=== PATIENT | male | born 1955 | race Caucasian/White ===

== ENCOUNTER 2018-02-04 13:05 | Observation (INO) ==
[2018-02-04] MEDS ORDERED: SODIUM CHLORIDE 0.9% 1,000 ML IV STA (13:27)
[2018-02-04 14:09] LABS: Basophils % 0.2 % (0.0-0.8); Hemoglobin 15.9 GM/DL (14.0-18.0); Immature Granulocytes % 0.6 %; Immature Granulocytes Absolute 0.08 #; Lymphocytes # 1.6 10*3/uL (1.4-4.0); Lymphocytes % 12.1 % (21.2-54.2); Mean Corpuscular HGB Conc 32.4 GM/DL (32-36); Mean Corpuscular Hemoglobin 28 PG (27-34); Mean Corpuscular Volume 87.3 FL (87-102); Monocytes # 2.1 10*3/uL (0.11-0.8); Monocytes % 16.3 % (1.7-12.7); Neutrophils # 9.2 10*3/uL (1.4-7.4); Neutrophils % 70.8 % (38.7-73.9); Platelet Count 188 T/CUMM (130-400); Red Blood Count 5.61 MC/CUMM (3.8-5.5); Red Cell Distribution Width 13.7 % (9.3-17.3)
[2018-02-04 14:27] LABS: INR 1.1; Partial Thromboplastin Time 34.1 SECS (0-40)
[2018-02-04 14:31] LABS: Lactic Acid 1.7 MMOL/L (0.4-2.0)
[2018-02-04 14:33] LABS: Apearance,Urine CLEAR (Clear); Bacteria,Urine Occasional /HPF (Few); Bilirubin,Urine Negative (Negative); Blood, Urine Negative (Negative); Glucose,Urine (UA) Negative (Negative); Hyaline Casts,Urine 1 /LPF (0-3); Ketones,Urine Negative (Negative); Mucus,Urine Occasional /LPF (Occasional); Nitrite,Urine Negative (Negative); Protein,Urine Negative; RBC,Urine 1 /HPF (0-4); Urine Color Amber (Yellow); Urine Specific Gravity 1.025 (1.001-1.035); WBC,Urine 4 /HPF (0-6)
[2018-02-04 15:13] LABS: Albumin 2.9 G/DL (3.4-5.0); Bilirubin,Total 0.4 MG/DL (0.2-1.0); Calcium 9.4 MG/DL (8.5-10.1); Osmolality,Calculated 288.7 MOS/KG (273-304); Total Protein 7.9 G/DL (6.4-8.3)
[2018-02-04] MEDS ORDERED: cefTRIAXone 1,000 MG in SODIUM CHLORIDE 0.9% 100 ML IV STA (15:30)
[2018-02-04] MEDS ORDERED: LACTULOSE 20 GM/30 ML UDCUP PO PRN (16:11)
[2018-02-04] MEDS ORDERED: ACETAMINOPHEN 325 MG TABLET PO PRN (16:11)
[2018-02-04] MEDS ORDERED: ONDANSETRON 4 MG/2 ML VIAL IV PRN (16:11)
[2018-02-04] MEDS ORDERED: POLYVINYL ALCOHOL 1.4% OPH SOLN 15 ML BOTTLE BOTH EYES PRN (16:13)
[2018-02-04] MEDS: SODIUM CHLORIDE 0.45% 1,000 ML IV SCH (18:53)
[2018-02-04] MEDS ORDERED: INFLUENZA VIRUS VACCINE 0.5 ML SYRINGE IM ONE (20:00)
[2018-02-04] MEDS ORDERED: hydrALAZINE 20 MG/1 ML VIAL IV PRN (20:21)
[2018-02-05] MEDS: miSOPROStol 200 MCG TABLET PO SCH ×6 (00:09→21:04)
[2018-02-05] MEDS: DIVALPROEX ER 500 MG TABLET PO SCH ×2 (00:10→21:04)
[2018-02-05] MEDS: DOCUSATE SODIUM 100 MG CAPSULE PO SCH ×2 (00:10→21:04)
[2018-02-05] MEDS: TAMSULOSIN 0.4 MG CAPSULE PO SCH ×3 (00:11→21:04)
[2018-02-05] MEDS: METOPROLOL TARTRATE 100 MG TABLET PO SCH ×3 (00:11→21:04)
[2018-02-05] MEDS: FLUTICASONE 50 MCG NASAL SPRAY 16 GM BOTTLE BOTH NARES SCH ×3 (00:11→21:09)
[2018-02-05] MEDS: PANTOPRAZOLE 40 MG TABLET PO SCH ×3 (00:12→21:04)
[2018-02-05] MEDS: LACOSAMIDE 50 MG TABLET PO SCH ×3 (00:12→21:04)
[2018-02-05] MEDS: AMANTADINE 100 MG CAPSULE PO SCH ×3 (00:12→21:04)
[2018-02-05] MEDS: OLANZapine 5 MG TABLET PO SCH ×3 (00:13→21:04)
[2018-02-05] MEDS: cefTRIAXone 1,000 MG in SYRINGE 1 EACH IV SCH ×2 (00:14→15:59)
[2018-02-05] MEDS: BISACODYL 10 MG SUPP RECTAL SCH ×2 (00:14→21:05)
[2018-02-05] MEDS: SUCRALFATE 1 GM/10 ML UDCUP PO SCH ×3 (00:14→15:59)
[2018-02-05] MEDS: SODIUM CHLORIDE 0.45% 1,000 ML IV SCH ×4 (03:22→16:00)
[2018-02-05 05:44] LABS: Basophils % 0.2 % (0.0-0.8); Immature Granulocytes % 0.7 %; Immature Granulocytes Absolute 0.06 #
[2018-02-05 06:13] LABS: Eosinophils % 0.4 % (0.00-10.9); Hematocrit 42.1 VOL% (42.0-52.0); Lymphocytes # 1.5 10*3/uL (1.4-4.0); Lymphocytes % 18.6 % (21.2-54.2); Mean Corpuscular HGB Conc 32.8 GM/DL (32-36); Mean Corpuscular Hemoglobin 29 PG (27-34); Mean Corpuscular Volume 89.4 FL (87-102); Mean Platelet Volume 9.7 FL (9.6-12.0); Monocytes # 1.3 10*3/uL (0.11-0.8); Monocytes % 15.8 % (1.7-12.7); Neutrophils # 5.3 10*3/uL (1.4-7.4); Neutrophils % 64.3 % (38.7-73.9); Red Blood Count 4.71 MC/CUMM (3.8-5.5); Red Cell Distribution Width 13.8 % (9.3-17.3)
[2018-02-05 06:15] LABS: Hemoglobin 13.8 GM/DL (14.0-18.0); Platelet Count 136 T/CUMM (130-400); White Blood Count 8.2 T/CUMM (4-12)
[2018-02-05 06:34] LABS: Band Neutrophils 3 % (0-10); Hypochromasia 1+; Lymphocytes 28 % (20-55); Segmented Neutrophils 56 % (50-85); Total Cells Counted 100
[2018-02-05 06:35] LABS: Platelet Estimate Normal
[2018-02-05 06:59] LABS: Albumin 2.4 G/DL (3.4-5.0); Bilirubin,Total 1.1 MG/DL (0.2-1.0); Calcium 8.6 MG/DL (8.5-10.1); Osmolality,Calculated 285.3 MOS/KG (273-304); Potassium 4.3 MMOL/L (3.5-5.1); Total Protein 6.3 G/DL (6.4-8.3)
[2018-02-05] MEDS: MULTIVITAMIN (CENTRUM) TABLET PO SCH (08:01)
[2018-02-05] MEDS: DUTASTERIDE 0.5 MG CAPSULE PO SCH (08:01)
[2018-02-05] MEDS: hydroCHLOROthiazide 25 MG TABLET PO SCH (08:02)
[2018-02-05] MEDS: aMILoride 5 MG TABLET PO SCH (08:02)
[2018-02-05] MEDS: DIVALPROEX 500 MG TABLET PO SCH (08:02)
[2018-02-06] MEDS: SODIUM CHLORIDE 0.45% 1,000 ML IV SCH ×2 (01:02→09:19)
[2018-02-06] MEDS: FLUTICASONE 50 MCG NASAL SPRAY 16 GM BOTTLE BOTH NARES SCH (09:17)
[2018-02-06] MEDS: PANTOPRAZOLE 40 MG TABLET PO SCH (09:18)
[2018-02-06] MEDS: TAMSULOSIN 0.4 MG CAPSULE PO SCH (09:18)
[2018-02-06] MEDS: aMILoride 5 MG TABLET PO SCH (09:18)
[2018-02-06] MEDS: MULTIVITAMIN (CENTRUM) TABLET PO SCH (09:18)
[2018-02-06] MEDS: DIVALPROEX 500 MG TABLET PO SCH (09:18)
[2018-02-06] MEDS: hydroCHLOROthiazide 25 MG TABLET PO SCH (09:18)
[2018-02-06] MEDS: DUTASTERIDE 0.5 MG CAPSULE PO SCH (09:18)
[2018-02-06] MEDS: AMANTADINE 100 MG CAPSULE PO SCH (09:18)
[2018-02-06] MEDS: OLANZapine 5 MG TABLET PO SCH (09:18)
[2018-02-06] MEDS: SUCRALFATE 1 GM/10 ML UDCUP PO SCH (09:18)
[2018-02-06] MEDS: LACOSAMIDE 50 MG TABLET PO SCH (09:18)
[2018-02-06] MEDS: miSOPROStol 200 MCG TABLET PO SCH ×2 (09:18→11:28)
[2018-02-06] MEDS: METOPROLOL TARTRATE 100 MG TABLET PO SCH (09:18)
[2018-02-06 12:22] VITALS: BP 112/70
== END 2018-02-06 15:12 | disposition home or self-care (01) ==
LOC: EDUNIT# → EDBD → N.ED 13:05 → N.EDINP 13:05 → N.5E 18:12
PROVIDERS: ADMIT Internal Medicine; ATTEND Internal Medicine

== ENCOUNTER 2019-12-04 02:45 | Inpatient (IN) ==
[2019-12-04] MEDS ORDERED: methylPREDNISolone SOD SUC 125 MG/2 ML VIAL IV STA (03:46)
[2019-12-04] MEDS ORDERED: cefTRIAXone 1,000 MG in SODIUM CHLORIDE 0.9% 100 ML IV STA (03:46)
[2019-12-04 03:57] LABS: Basophils % 0.3 % (0.0-0.8); Eosinophils # 0.1 10*3/uL (0.0-0.87); Eosinophils % 0.6 % (0.00-10.9); Hematocrit 35.8 VOL% (42.0-52.0); Hemoglobin 11.8 GM/DL (14.0-18.0); Immature Granulocytes % 4.9 %; Immature Granulocytes Absolute 0.51 #; Lymphocytes # 0.8 10*3/uL (1.4-4.0); Lymphocytes % 7.3 % (21.2-54.2); Mean Corpuscular Volume 86.3 FL (87-102); Mean Platelet Volume 8.5 FL (9.6-12.0); Neutrophils % 79.9 % (38.7-73.9); Platelet Count 190 T/CUMM (130-400); Red Blood Count 4.15 MC/CUMM (3.8-5.5); Red Cell Distribution Width 14.6 % (9.3-17.3); White Blood Count 10.4 T/CUMM (4-12)
[2019-12-04] MEDS ORDERED: LORazepam 2 MG/1 ML VIAL ONE (04:06)
[2019-12-04 04:14] LABS: Albumin 1.6 G/DL (3.4-5.0); Bilirubin,Total 0.5 MG/DL (0.2-1.0); Calcium 8.8 MG/DL (8.5-10.1); Ferritin 711.1 ng/ml (26-388); Osmolality,Calculated 252.2 MOS/KG (273-304); Total Protein 6.7 G/DL (6.4-8.3)
[2019-12-04] MEDS ORDERED: LORazepam 4 MG/1 ML VIAL IV STA (04:16)
[2019-12-04 04:17] LABS: Apearance,Urine CLEAR (Clear); Bacteria,Urine Occasional /HPF (Few); Bilirubin,Urine Negative (Negative); Blood, Urine Negative (Negative); Glucose,Urine (UA) Negative (Negative); Hyaline Casts,Urine 1 /LPF (0-3); Ketones,Urine 20 mg/dL (Negative); Mucus,Urine Occasional /LPF (Occasional); Nitrite,Urine Negative (Negative); Protein,Urine Negative; RBC,Urine 1 /HPF (0-4); Squamous Epithelial Cell,Urine Occasional /HPF (0-10); Urine Color Yellow (Yellow); WBC,Urine 1 /HPF (0-6)
[2019-12-04 04:20] LABS: INR 1.1; PT Patient Result 12.2 SECS (9.8-11.9)
[2019-12-04] MEDS ORDERED: PIPERACILLIN/TAZOBACTAM 3,375 MG in SODIUM CHLORIDE 0.9% 100 ML IV STA (04:29)
[2019-12-04 04:49] LABS: Lymphocytes 9 % (20-55); Segmented Neutrophils 83 % (50-85); Total Cells Counted 100
[2019-12-04 04:50] LABS: Anisocytosis 1+; Platelet Estimate Normal
[2019-12-04] MEDS ORDERED: ALUMINUM/MAGNES/SIMETH MAX STR 30 ML UDCUP PO PRN (05:16)
[2019-12-04] MEDS ORDERED: ACETAMINOPHEN 325 MG TABLET PO PRN (05:50)
[2019-12-04] MEDS ORDERED: ONDANSETRON 4 MG/2 ML VIAL IV PRN (05:50)
[2019-12-04] MEDS ORDERED: LORazepam 2 MG/1 ML VIAL IV PRN (06:16)
[2019-12-04] MEDS: ENOXAPARIN 40 MG/0.4 ML SYRINGE SUBCUT SCH (08:45)
[2019-12-04] MEDS: SODIUM CHLORIDE 1 GM TABLET PO SCH ×3 (08:45→20:12)
[2019-12-04] MEDS: FLUTICASONE 50 MCG NASAL SPRAY 16 GM BOTTLE BOTH NARES SCH ×2 (08:45→20:13)
[2019-12-04] MEDS: DUTASTERIDE 0.5 MG CAPSULE PO SCH (08:45)
[2019-12-04] MEDS: POTASSIUM CHLORIDE 20 MEQ/15 ML UDCUP PO SCH (08:45)
[2019-12-04] MEDS: CHOLECALCIFEROL 1,000 UNIT TABLET PO SCH (08:45)
[2019-12-04] MEDS: AMANTADINE 100 MG CAPSULE PO SCH ×2 (08:45→20:11)
[2019-12-04] MEDS: CETIRIZINE 10 MG TABLET PO SCH (08:46)
[2019-12-04] MEDS: CARBIDOPA/LEVODOPA 25-100 MG TABLET PO SCH ×3 (08:46→20:12)
[2019-12-04] MEDS: AZITHROMYCIN 250 MG TABLET PO SCH (08:46)
[2019-12-04] MEDS: FAMOTIDINE 20 MG TABLET PO SCH ×2 (08:46→20:12)
[2019-12-04] MEDS: miSOPROStoL 200 MCG TABLET PO SCH ×4 (08:46→20:12)
[2019-12-04] MEDS: TAMSULOSIN 0.4 MG CAPSULE PO SCH ×2 (08:46→20:12)
[2019-12-04] MEDS: ZINC SULFATE 220 MG CAPSULE PO SCH (08:47)
[2019-12-04] MEDS: SUCRALFATE 1 GM/10 ML UDCUP PO SCH ×2 (08:47→17:11)
[2019-12-04] MEDS: BACLOFEN 10 MG TABLET PO SCH ×2 (08:47→20:13)
[2019-12-04] MEDS: METOPROLOL TARTRATE 100 MG TABLET PO SCH ×2 (08:47→20:12)
[2019-12-04] MEDS: ASCORBIC ACID 500 MG TABLET PO SCH (08:47)
[2019-12-04] MEDS: DIVALPROEX 500 MG TABLET PO SCH (08:47)
[2019-12-04] MEDS ORDERED: AMILORIDE PO SCH (09:00)
[2019-12-04] MEDS ORDERED: AZITHROMYCIN INJ 500 MG in SODIUM CHLORIDE 0.9% 250 ML IV SCH (09:00)
[2019-12-04] MEDS: LORazepam 2 MG/1 ML VIAL IV PRN (13:54)
[2019-12-04] MEDS: PIPERACILLIN/TAZOBACTAM 3,375 MG in SODIUM CHLORIDE 0.9% 100 ML IV SCH ×2 (17:10→23:59)
[2019-12-04] MEDS: LACTULOSE 20 GM/30 ML UDCUP PO SCH (20:11)
[2019-12-04] MEDS: DOCUSATE SODIUM 100 MG CAPSULE PO SCH (20:11)
[2019-12-04] MEDS: levETIRAcetam 500 MG TABLET PO SCH (20:11)
[2019-12-04] MEDS: ARIPiprazole 10 MG TABLET PO SCH (20:12)
[2019-12-04] MEDS: BISACODYL 10 MG SUPP RECTAL SCH (20:12)
[2019-12-04] MEDS: DIVALPROEX ER 500 MG TABLET PO SCH (20:12)
[2019-12-04] MEDS: CARBOXYMETHYLCELLULOSE 1% OPH SOLN BOTH EYES SCH (20:12)
[2019-12-05 05:57] LABS: Hematocrit 31.6 VOL% (42.0-52.0); Hemoglobin 10.5 GM/DL (14.0-18.0); Immature Granulocytes % 1.8 %; Immature Granulocytes Absolute 0.17 #; Lymphocytes # 0.7 10*3/uL (1.4-4.0); Lymphocytes % 7.2 % (21.2-54.2); Mean Corpuscular HGB Conc 33.2 GM/DL (32-36); Mean Corpuscular Volume 87.5 FL (87-102); Mean Platelet Volume 8.8 FL (9.6-12.0); Monocytes % 5.9 % (1.7-12.7); Neutrophils % 85.1 % (38.7-73.9); Platelet Count 191 T/CUMM (130-400); Red Blood Count 3.61 MC/CUMM (3.8-5.5); Red Cell Distribution Width 14.7 % (9.3-17.3); White Blood Count 9.7 T/CUMM (4-12)
[2019-12-05 06:22] LABS: Calcium 8.5 MG/DL (8.5-10.1); Osmolality,Calculated 268.4 MOS/KG (273-304)
[2019-12-05] MEDS: LORazepam 2 MG/1 ML VIAL IV PRN (07:57)
[2019-12-05] MEDS: SUCRALFATE 1 GM/10 ML UDCUP PO SCH ×2 (08:58→16:35)
[2019-12-05] MEDS: POTASSIUM CHLORIDE 20 MEQ/15 ML UDCUP PO SCH (08:58)
[2019-12-05] MEDS: LACTULOSE 20 GM/30 ML UDCUP PO SCH ×2 (08:58→20:04)
[2019-12-05] MEDS: ENOXAPARIN 40 MG/0.4 ML SYRINGE SUBCUT SCH (08:59)
[2019-12-05] MEDS: PIPERACILLIN/TAZOBACTAM 3,375 MG in SODIUM CHLORIDE 0.9% 100 ML IV SCH ×2 (08:59→19:50)
[2019-12-05] MEDS: FAMOTIDINE 20 MG TABLET PO SCH ×2 (09:00→20:04)
[2019-12-05] MEDS: CHOLECALCIFEROL 1,000 UNIT TABLET PO SCH (09:00)
[2019-12-05] MEDS: DEXAMETHASONE 10 MG/1 ML VIAL IV SCH (09:00)
[2019-12-05] MEDS: AZITHROMYCIN 250 MG TABLET PO SCH (09:01)
[2019-12-05] MEDS: DUTASTERIDE 0.5 MG CAPSULE PO SCH (09:01)
[2019-12-05] MEDS: BACLOFEN 10 MG TABLET PO SCH ×2 (09:01→20:05)
[2019-12-05] MEDS: CARBIDOPA/LEVODOPA 25-100 MG TABLET PO SCH ×3 (09:01→20:05)
[2019-12-05] MEDS: miSOPROStoL 200 MCG TABLET PO SCH ×4 (09:01→20:05)
[2019-12-05] MEDS: AMANTADINE 100 MG CAPSULE PO SCH ×2 (09:02→20:04)
[2019-12-05] MEDS: SODIUM CHLORIDE 1 GM TABLET PO SCH ×3 (09:02→20:05)
[2019-12-05] MEDS: DIVALPROEX 500 MG TABLET PO SCH (09:02)
[2019-12-05] MEDS: levETIRAcetam 500 MG TABLET PO SCH ×2 (09:02→20:04)
[2019-12-05] MEDS: TAMSULOSIN 0.4 MG CAPSULE PO SCH ×2 (09:02→20:05)
[2019-12-05] MEDS: ASCORBIC ACID 500 MG TABLET PO SCH (09:02)
[2019-12-05] MEDS: MULTIVITAMIN (CENTRUM) TABLET PO SCH (09:02)
[2019-12-05] MEDS: CETIRIZINE 10 MG TABLET PO SCH (09:02)
[2019-12-05] MEDS: METOPROLOL TARTRATE 100 MG TABLET PO SCH ×2 (09:02→20:04)
[2019-12-05] MEDS: VANCOMYCIN INJ 1,000 MG in SODIUM CHLORIDE 0.9% 250 ML IV SCH ×3 (09:03→23:53)
[2019-12-05] MEDS: FLUTICASONE 50 MCG NASAL SPRAY 16 GM BOTTLE BOTH NARES SCH ×2 (09:04→20:05)
[2019-12-05] MEDS: CARBOXYMETHYLCELLULOSE 1% OPH SOLN BOTH EYES SCH (20:04)
[2019-12-05] MEDS: ARIPiprazole 10 MG TABLET PO SCH (20:05)
[2019-12-05] MEDS: DOCUSATE SODIUM 100 MG CAPSULE PO SCH (20:05)
[2019-12-05] MEDS: BISACODYL 10 MG SUPP RECTAL SCH (20:05)
[2019-12-05] MEDS: DIVALPROEX ER 500 MG TABLET PO SCH (20:05)
[2019-12-06] MEDS: PIPERACILLIN/TAZOBACTAM 3,375 MG in SODIUM CHLORIDE 0.9% 100 ML IV SCH ×3 (04:30→20:42)
[2019-12-06 05:33] LABS: Basophils % 0.2 % (0.0-0.8); Hematocrit 33.4 VOL% (42.0-52.0); Hemoglobin 10.7 GM/DL (14.0-18.0); Immature Granulocytes % 1.4 %; Immature Granulocytes Absolute 0.13 #; Lymphocytes # 0.8 10*3/uL (1.4-4.0); Lymphocytes % 9.4 % (21.2-54.2); Mean Corpuscular Volume 89.8 FL (87-102); Mean Platelet Volume 8.5 FL (9.6-12.0); Monocytes % 7.5 % (1.7-12.7); NRBC # 0.02 10*3/uL; Neutrophils % 81.5 % (38.7-73.9); Platelet Count 206 T/CUMM (130-400); Red Blood Count 3.72 MC/CUMM (3.8-5.5); Red Cell Distribution Width 14.9 % (9.3-17.3)
[2019-12-06 07:01] LABS: Calcium 8.7 MG/DL (8.5-10.1); Osmolality,Calculated 281.4 MOS/KG (273-304)
[2019-12-06] MEDS: SUCRALFATE 1 GM/10 ML UDCUP PO SCH ×2 (10:11→17:03)
[2019-12-06] MEDS: MULTIVITAMIN (CENTRUM) TABLET PO SCH (10:12)
[2019-12-06] MEDS: DEXAMETHASONE 10 MG/1 ML VIAL IV SCH (10:12)
[2019-12-06] MEDS: DUTASTERIDE 0.5 MG CAPSULE PO SCH (10:12)
[2019-12-06] MEDS: miSOPROStoL 200 MCG TABLET PO SCH ×4 (10:12→20:09)
[2019-12-06] MEDS: DIVALPROEX 500 MG TABLET PO SCH (10:13)
[2019-12-06] MEDS: FLUTICASONE 50 MCG NASAL SPRAY 16 GM BOTTLE BOTH NARES SCH ×2 (10:13→20:10)
[2019-12-06] MEDS: METOPROLOL TARTRATE 100 MG TABLET PO SCH ×2 (10:13→20:11)
[2019-12-06] MEDS: levETIRAcetam 500 MG TABLET PO SCH ×2 (10:13→20:10)
[2019-12-06] MEDS: TAMSULOSIN 0.4 MG CAPSULE PO SCH ×2 (10:13→20:10)
[2019-12-06] MEDS: BACLOFEN 10 MG TABLET PO SCH ×2 (10:13→20:11)
[2019-12-06] MEDS: SODIUM CHLORIDE 1 GM TABLET PO SCH ×3 (10:14→20:10)
[2019-12-06] MEDS: CARBIDOPA/LEVODOPA 25-100 MG TABLET PO SCH ×3 (10:14→20:09)
[2019-12-06] MEDS: ZINC SULFATE 220 MG CAPSULE PO SCH (10:14)
[2019-12-06] MEDS: ENOXAPARIN 40 MG/0.4 ML SYRINGE SUBCUT SCH (10:14)
[2019-12-06] MEDS: ASCORBIC ACID 500 MG TABLET PO SCH (10:14)
[2019-12-06] MEDS: FAMOTIDINE 20 MG TABLET PO SCH ×2 (10:14→20:10)
[2019-12-06] MEDS: CHOLECALCIFEROL 1,000 UNIT TABLET PO SCH (10:14)
[2019-12-06] MEDS: AMANTADINE 100 MG CAPSULE PO SCH ×2 (10:14→20:10)
[2019-12-06] MEDS: POTASSIUM CHLORIDE 20 MEQ/15 ML UDCUP PO SCH (10:15)
[2019-12-06] MEDS: CETIRIZINE 10 MG TABLET PO SCH (10:15)
[2019-12-06] MEDS: LACTULOSE 20 GM/30 ML UDCUP PO SCH ×2 (10:15→20:09)
[2019-12-06] MEDS: VANCOMYCIN INJ 1,000 MG in SODIUM CHLORIDE 0.9% 250 ML IV SCH (11:46)
[2019-12-06] MEDS: VANCOMYCIN INJ 1,250 MG in SODIUM CHLORIDE 0.9% 250 ML IV SCH ×2 (12:02→19:37)
[2019-12-06] MEDS: DOCUSATE SODIUM 100 MG CAPSULE PO SCH (20:09)
[2019-12-06] MEDS: ARIPiprazole 10 MG TABLET PO SCH (20:10)
[2019-12-06] MEDS: CARBOXYMETHYLCELLULOSE 1% OPH SOLN BOTH EYES SCH (20:10)
[2019-12-06] MEDS: DIVALPROEX ER 500 MG TABLET PO SCH (20:10)
[2019-12-06] MEDS: BISACODYL 10 MG SUPP RECTAL SCH (20:11)
[2019-12-07] MEDS: VANCOMYCIN INJ 1,250 MG in SODIUM CHLORIDE 0.9% 250 ML IV SCH ×2 (03:15→16:54)
[2019-12-07 04:33] LABS: Basophils % 0.1 % (0.0-0.8); Hematocrit 35.4 VOL% (42.0-52.0); Hemoglobin 11.1 GM/DL (14.0-18.0); Immature Granulocytes % 1.3 %; Immature Granulocytes Absolute 0.09 #; Lymphocytes # 1.2 10*3/uL (1.4-4.0); Lymphocytes % 17.1 % (21.2-54.2); Mean Corpuscular HGB Conc 31.4 GM/DL (32-36); Mean Corpuscular Volume 90.5 FL (87-102); Mean Platelet Volume 8.5 FL (9.6-12.0); Monocytes % 7.7 % (1.7-12.7); Neutrophils % 73.8 % (38.7-73.9); Platelet Count 204 T/CUMM (130-400); Red Blood Count 3.91 MC/CUMM (3.8-5.5); Red Cell Distribution Width 15.1 % (9.3-17.3)
[2019-12-07] MEDS: PIPERACILLIN/TAZOBACTAM 3,375 MG in SODIUM CHLORIDE 0.9% 100 ML IV SCH ×3 (04:42→21:23)
[2019-12-07 04:49] LABS: Calcium 8.7 MG/DL (8.5-10.1)
[2019-12-07] MEDS: FAMOTIDINE 20 MG TABLET PO SCH ×2 (09:12→21:25)
[2019-12-07] MEDS: ASCORBIC ACID 500 MG TABLET PO SCH (09:12)
[2019-12-07] MEDS: CETIRIZINE 10 MG TABLET PO SCH (09:12)
[2019-12-07] MEDS: AMANTADINE 100 MG CAPSULE PO SCH ×2 (09:12→21:26)
[2019-12-07] MEDS: METOPROLOL TARTRATE 100 MG TABLET PO SCH ×2 (09:12→21:25)
[2019-12-07] MEDS: miSOPROStoL 200 MCG TABLET PO SCH ×4 (09:12→21:24)
[2019-12-07] MEDS: TAMSULOSIN 0.4 MG CAPSULE PO SCH ×2 (09:12→21:23)
[2019-12-07] MEDS: SODIUM CHLORIDE 1 GM TABLET PO SCH ×3 (09:12→21:26)
[2019-12-07] MEDS: levETIRAcetam 500 MG TABLET PO SCH ×2 (09:12→21:25)
[2019-12-07] MEDS: CHOLECALCIFEROL 1,000 UNIT TABLET PO SCH (09:12)
[2019-12-07] MEDS: DIVALPROEX 500 MG TABLET PO SCH (09:12)
[2019-12-07] MEDS: BACLOFEN 10 MG TABLET PO SCH ×2 (09:13→21:25)
[2019-12-07] MEDS: DEXAMETHASONE 10 MG/1 ML VIAL IV SCH (09:13)
[2019-12-07] MEDS: ENOXAPARIN 40 MG/0.4 ML SYRINGE SUBCUT SCH (09:13)
[2019-12-07] MEDS: DUTASTERIDE 0.5 MG CAPSULE PO SCH (09:13)
[2019-12-07] MEDS: MULTIVITAMIN (CENTRUM) TABLET PO SCH (09:13)
[2019-12-07] MEDS: POTASSIUM CHLORIDE 20 MEQ/15 ML UDCUP PO SCH (09:14)
[2019-12-07] MEDS: FLUTICASONE 50 MCG NASAL SPRAY 16 GM BOTTLE BOTH NARES SCH ×2 (09:14→21:25)
[2019-12-07] MEDS: CARBIDOPA/LEVODOPA 25-100 MG TABLET PO SCH ×3 (09:14→21:26)
[2019-12-07] MEDS: LACTULOSE 20 GM/30 ML UDCUP PO SCH ×2 (09:14→22:17)
[2019-12-07] MEDS: SUCRALFATE 1 GM/10 ML UDCUP PO SCH ×2 (09:14→16:45)
[2019-12-07] MEDS: ARIPiprazole 10 MG TABLET PO SCH (21:23)
[2019-12-07] MEDS: DIVALPROEX ER 500 MG TABLET PO SCH (21:24)
[2019-12-07] MEDS: CARBOXYMETHYLCELLULOSE 1% OPH SOLN BOTH EYES SCH (21:26)
[2019-12-07] MEDS: DOCUSATE SODIUM 100 MG CAPSULE PO SCH (22:17)
[2019-12-07] MEDS: BISACODYL 10 MG SUPP RECTAL SCH (22:18)
[2019-12-08] MEDS: VANCOMYCIN INJ 1,250 MG in SODIUM CHLORIDE 0.9% 250 ML IV SCH (04:13)
[2019-12-08] MEDS: PIPERACILLIN/TAZOBACTAM 3,375 MG in SODIUM CHLORIDE 0.9% 100 ML IV SCH ×3 (05:40→20:54)
[2019-12-08 06:02] LABS: Calcium 8.7 MG/DL (8.5-10.1); Osmolality,Calculated 295.4 MOS/KG (273-304)
[2019-12-08] MEDS: CHOLECALCIFEROL 1,000 UNIT TABLET PO SCH (09:03)
[2019-12-08] MEDS: CARBIDOPA/LEVODOPA 25-100 MG TABLET PO SCH ×3 (09:04→20:55)
[2019-12-08] MEDS: levETIRAcetam 500 MG TABLET PO SCH ×2 (09:04→20:55)
[2019-12-08] MEDS: DIVALPROEX 500 MG TABLET PO SCH (09:04)
[2019-12-08] MEDS: ZINC SULFATE 220 MG CAPSULE PO SCH (09:04)
[2019-12-08] MEDS: BACLOFEN 10 MG TABLET PO SCH ×2 (09:04→20:55)
[2019-12-08] MEDS: SODIUM CHLORIDE 1 GM TABLET PO SCH ×3 (09:04→20:55)
[2019-12-08] MEDS: METOPROLOL TARTRATE 100 MG TABLET PO SCH ×2 (09:04→20:55)
[2019-12-08] MEDS: CETIRIZINE 10 MG TABLET PO SCH (09:04)
[2019-12-08] MEDS: TAMSULOSIN 0.4 MG CAPSULE PO SCH ×2 (09:04→20:54)
[2019-12-08] MEDS: FAMOTIDINE 20 MG TABLET PO SCH ×2 (09:05→20:55)
[2019-12-08] MEDS: ASCORBIC ACID 500 MG TABLET PO SCH (09:05)
[2019-12-08] MEDS: MULTIVITAMIN (CENTRUM) TABLET PO SCH (09:05)
[2019-12-08] MEDS: AMANTADINE 100 MG CAPSULE PO SCH ×2 (09:06→20:55)
[2019-12-08] MEDS: SUCRALFATE 1 GM/10 ML UDCUP PO SCH ×2 (09:06→16:08)
[2019-12-08] MEDS: DEXAMETHASONE 10 MG/1 ML VIAL IV SCH (09:06)
[2019-12-08] MEDS: miSOPROStoL 200 MCG TABLET PO SCH ×4 (09:06→20:54)
[2019-12-08] MEDS: DUTASTERIDE 0.5 MG CAPSULE PO SCH (09:06)
[2019-12-08] MEDS: POTASSIUM CHLORIDE 20 MEQ/15 ML UDCUP PO SCH (09:06)
[2019-12-08] MEDS: FLUTICASONE 50 MCG NASAL SPRAY 16 GM BOTTLE BOTH NARES SCH ×2 (09:07→20:55)
[2019-12-08] MEDS: LACTULOSE 20 GM/30 ML UDCUP PO SCH ×2 (09:07→20:54)
[2019-12-08] MEDS: ENOXAPARIN 40 MG/0.4 ML SYRINGE SUBCUT SCH (10:34)
[2019-12-08] MEDS: DIVALPROEX ER 500 MG TABLET PO SCH (20:54)
[2019-12-08] MEDS: ARIPiprazole 10 MG TABLET PO SCH (20:54)
[2019-12-08] MEDS: CARBOXYMETHYLCELLULOSE 1% OPH SOLN BOTH EYES SCH (20:55)
[2019-12-08] MEDS: BISACODYL 10 MG SUPP RECTAL SCH (21:46)
[2019-12-08] MEDS: DOCUSATE SODIUM 100 MG CAPSULE PO SCH (21:46)
[2019-12-09] MEDS: PIPERACILLIN/TAZOBACTAM 3,375 MG in SODIUM CHLORIDE 0.9% 100 ML IV SCH ×2 (04:55→13:38)
[2019-12-09 06:10] LABS: Basophils % 0.2 % (0.0-0.8); Eosinophils % 0.6 % (0.00-10.9); Hematocrit 39.1 VOL% (42.0-52.0); Hemoglobin 11.8 GM/DL (14.0-18.0); Immature Granulocytes % 0.8 %; Immature Granulocytes Absolute 0.04 #; Lymphocytes # 0.9 10*3/uL (1.4-4.0); Lymphocytes % 17.5 % (21.2-54.2); Mean Corpuscular HGB Conc 30.2 GM/DL (32-36); Mean Platelet Volume 8.4 FL (9.6-12.0); Monocytes % 9.4 % (1.7-12.7); Neutrophils % 71.5 % (38.7-73.9); Platelet Count 180 T/CUMM (130-400); Red Blood Count 4.16 MC/CUMM (3.8-5.5); Red Cell Distribution Width 15.4 % (9.3-17.3); White Blood Count 5.2 T/CUMM (4-12)
[2019-12-09 06:29] LABS: Calcium 8.7 MG/DL (8.5-10.1); Osmolality,Calculated 299.1 MOS/KG (273-304)
[2019-12-09] MEDS ORDERED: POTASSIUM CHLORIDE 20 MEQ TABLET PO ONE (07:31)
[2019-12-09] MEDS: DEXAMETHASONE 10 MG/1 ML VIAL IV SCH (10:07)
[2019-12-09] MEDS: LACTULOSE 20 GM/30 ML UDCUP PO SCH (10:10)
[2019-12-09] MEDS: ASCORBIC ACID 500 MG TABLET PO SCH (10:10)
[2019-12-09] MEDS: MULTIVITAMIN (CENTRUM) TABLET PO SCH (10:10)
[2019-12-09] MEDS: CHOLECALCIFEROL 1,000 UNIT TABLET PO SCH (10:10)
[2019-12-09] MEDS: levETIRAcetam 500 MG TABLET PO SCH (10:10)
[2019-12-09] MEDS: AMANTADINE 100 MG CAPSULE PO SCH (10:10)
[2019-12-09] MEDS: DUTASTERIDE 0.5 MG CAPSULE PO SCH (10:10)
[2019-12-09] MEDS: POTASSIUM CHLORIDE 20 MEQ/15 ML UDCUP PO SCH (10:10)
[2019-12-09] MEDS: FAMOTIDINE 20 MG TABLET PO SCH (10:10)
[2019-12-09] MEDS: ENOXAPARIN 40 MG/0.4 ML SYRINGE SUBCUT SCH (10:10)
[2019-12-09] MEDS: FLUTICASONE 50 MCG NASAL SPRAY 16 GM BOTTLE BOTH NARES SCH (10:10)
[2019-12-09] MEDS: SUCRALFATE 1 GM/10 ML UDCUP PO SCH (10:10)
[2019-12-09] MEDS: METOPROLOL TARTRATE 100 MG TABLET PO SCH (10:10)
[2019-12-09] MEDS: CARBIDOPA/LEVODOPA 25-100 MG TABLET PO SCH ×2 (10:10→14:02)
[2019-12-09] MEDS: BACLOFEN 10 MG TABLET PO SCH (10:10)
[2019-12-09] MEDS: SODIUM CHLORIDE 1 GM TABLET PO SCH ×2 (10:10→14:02)
[2019-12-09] MEDS: miSOPROStoL 200 MCG TABLET PO SCH ×2 (10:10→13:38)
[2019-12-09] MEDS: DIVALPROEX 500 MG TABLET PO SCH (10:10)
[2019-12-09] MEDS: CETIRIZINE 10 MG TABLET PO SCH (10:10)
[2019-12-09] MEDS: TAMSULOSIN 0.4 MG CAPSULE PO SCH (10:10)
[2019-12-09 15:52] VITALS: BP 141/75
== END 2019-12-09 16:03 | DRG 871 ==
LOC: EDUNIT# → N.ED 02:45 → SUATTDRO 05:15 → N.EDINP 05:15 → N.2E 05:45
PROVIDERS: ADMIT Internal Medicine; ATTEND Internal Medicine